=== PATIENT | female | born 1985 | race Caucasian/White ===

== ENCOUNTER 2021-03-22 19:48 | Emergency (ER) | payer MEDICAID ==
[2021-03-22 19:56] VITALS: BP 142/100
[2021-03-22] MEDS ORDERED: HYDROcod/ACETAM 5/325 MG TABLET PO STA (20:32)
--- NOTE | 2021-03-22 20:51 | ED Physician Documentation ---
PD HPI LOWER EXT INJURY - Stated complaint Stated Complaint: R KNEE/FOOT PX - Chief complaint Chief Complaint: Trauma Ext - History obtained from History obtained from: Patient - History of Present Illness PD HPI LOW EXT INJURY LOCATION: Right, Foot Pain level max: 7 Pain level now: 6 Improved by: Rest, Ice, Immobilization Worsened by: Moving, Palpating Associated symptoms: Swelling, Discolored (bruising). No: Weakness, Numbness, Tingling - Additional information Additional information: Patient is a 35-year-old female who presents to the emergency department complaining of right knee and right foot pain. She states that she was playing softball today when she was struck in the knee By a line drive. She states that she was "walking it off". When she tripped and injured her right foot. This occurred about 5 hours prior to arrival. Worse with walking, better with rest. Review of Systems Constitutional: denies: Fever, Chills Respiratory: denies: Cough GI: denies: Abdominal Pain, Vomiting : denies: Now EGA Neurologic: denies: Head injury PD PAST MEDICAL HISTORY - Past Medical History Past Medical History: No - Past Surgical History Past Surgical History: No - Present Medications Home Medications: Ambulatory Orders Medication Instructions Recorded Confirmed HYDROcod/ACETAM 5/325 [[place] 5/325] 1 - 2 ea PO Q6H PRN #14 tablet 03/22/21 Levothyroxine Sodium 50 mcg PO BID 03/22/21 03/22/21 Omeprazole 40 mg PO DAILY 03/22/21 03/22/21 - Allergies Allergies/Adverse Reactions: Allergies Allergy/AdvReac Type Severity Reaction Status Date / Time sulfacetamide Allergy Anaphylaxis Verified 03/22/21 19:56 - Living Situation Living Situation: reports: With family Living Arrangement: reports: At home - Social History Does the pt have substance abuse?: No PD ED PE NORMAL - Vitals Vital signs reviewed: Yes - General General: Alert and oriented X 3, No acute distress - HEENT HEENT: Moist mucous membranes - Derm Derm: Warm and dry - Neuro Neuro: Alert and oriented X 3 - Psych Psych: Normal mood, Normal affect - Free text exam Free text exam: R LE - Mild ecchymosis and tenderness over the patella of the right knee. ACL, MCL, PCL, LCL are intact. No joint effusion. No tenderness along the joint line. The right ankle reveals a normal examination. The right foot has slight ecchymosis to the lateral aspect of the foot along with tenderness over the base of the fifth metatarsal. Otherwise normal examination of the right foot. Neurovascular intact. Results - Vitals Vitals: Vital Signs - 24 hr 03/22/21 19:53 Temperature 36.3 C L Heart Rate 82 Respiratory 16 Rate Blood Pressure 142/100 H O2 Saturation 100 Oxygen O2 Source Room air - Rads (name of study) R foot xray Radiology: Final report received, EMP read contemporaneously, See rad report (No acute bony abnormality) R knee xray Radiology: Final report received, EMP read contemporaneously, See rad report (No acute bony abnormality) PD MEDICAL DECISION MAKING - ED course Complexity details: reviewed results, re-evaluated patient, considered differential, d/w patient ED course: 35-year-old female presents the emergency department with a right knee contusion and a right foot contusion. No acute findings on x-rays. No ligamentous injury. Pain well controlled. Placed in a postoperative shoe and given crutches. We will continue pain medication and ice for home. We will have her rest and elevate the area. We will have her follow-up with her doctor for further care. I am prescribing a short course of short-acting opioid pain medication for this patient. 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 I have discussed that the opioids are for short term therapy only, and will not be refilled from the ED. patient counseled regarding signs and symptoms for which I believe and urgent re-evaluation would be necessary. Patient with good understanding of and agreement to plan and is comfortable going home at this time This document was made in part using voice recognition software. While efforts are made to proofread this document, sound alike and grammatical errors may occur. Departure - Departure Disposition: 01 Home, Self Care Clinical Impression: Contusion of foot Qualifiers: Encounter type: initial encounter Laterality: right Qualified Code(s): S90.31XA - Contusion of right foot, initial encounter Knee contusion Qualifiers: Encounter type: initial encounter Laterality: right Qualified Code(s): S80.01XA - Contusion of right knee, initial encounter Condition: Good Instructions: ED Contusion Lower Ext Follow-Up: your,doctor in 1 week [Other] Prescriptions: HYDROcod/ACETAM 5/325 [[place] 5/325] 1 - 2 ea PO Q6H PRN #14 tablet PRN Reason: Pain Comments: Your x-rays do not show any acute abnormalities today. You may bear weight as tolerated. Please follow-up with your doctor in 1 week for repeat evaluation. Your prescription was sent to [facility] in [place]. I am prescribing a short course of narcotic pain medication for you. These are potentially dangerous and addictive medications that should be used carefully. These medications may constipate you. Take an penz-mwu-diwjqzo stool softener (docusate) twice daily with plenty of water while taking these medications. If you go 24 hours without a bowel movement, take mfxa-plf-wwzolyg miralax, per package instructions. Do not drink or drive while taking these medications. If you received narcotic or sedating medications while in the emergency department, do not drive for 24 hours. Store this medication in a safe, secure place and out of reach of children. It is a violation of federal law to give or sell this medication to another person or to use in a manner other than prescribed. The ED will not refill narcotic prescriptions, including prescriptions lost or stolen. To dispose of unwanted medications: 1. [facility] at [address] in [place] has a medication drop box. They accept prescription medications (in pill form) Tuesday through Tuesday 9:00 a.m. to 5:00 p.m. 2. The [facility] Police Department accepts prescription medications (in pill form only) for disposal year round. Call for more information. 3. Contact the [facility] for the next [facility] sponsored prescription drug collection event. , [phone], or [phone];
--- NOTE | 2021-03-22 21:12 | XRAY Report ---
PROCEDURE: Foot 3 View RT INDICATIONS: Fall, pain TECHNIQUE: 3 views of the foot were acquired. COMPARISON: None FINDINGS: Bones: No fractures or dislocations. No suspicious bony lesions. Soft tissues: No tibiotalar joint effusion. Achilles tendon appears normal. IMPRESSION: Normal exam. Reviewed by: Patricio Headley MD on 03/22/2021 9:10 PM [facility] Approved by: Patricio Headley MD on 03/22/2021 9:10 PM [facility] Station ID: [id number]
--- NOTE | 2021-03-22 21:13 | XRAY Report ---
PROCEDURE: Knee 4 View RT INDICATIONS: fall, pain TECHNIQUE: 4 views of the right knee. COMPARISON: None. FINDINGS: Bones: No fractures or dislocations. No suspicious bony lesions. Soft tissues: Small suprapatellar knee joint effusion without lipohemarthrosis. No suspicious soft ti ssue calcifications. IMPRESSION: No fracture. Small suprapatellar knee effusion. Reviewed by: Patricio Headley MD on 03/22/2021 9:11 PM PST Approved by: Patricio Headley MD on 03/22/2021 9:11 PM PST Station ID: [id number]
== END 2021-03-22 21:30 | disposition home or self-care (01) ==
LOC: ED 19:48
DX: S80.01XA Contusion of right knee, initial encounter (principal); S90.31XA Contusion of right foot, initial encounter; W21.07XA Struck by softball, initial encounter; W18.40XA Slipping, tripping and stumbling without falling, unspecified, initial encounter; Y93.64 Activity, baseball
CPT/HCPCS: 73564; 73630; 99283; A9270

== ENCOUNTER 2021-03-31 08:00 | Outpatient (CLI) | payer MEDICAID | END 2021-03-31 23:59 | LOC: LAB 08:00 | PROVIDERS: ATTEND Emergency Medicine | DX: Z53.9 Procedure and treatment not carried out, unspecified reason (principal) | CPT/HCPCS: 36415; 86317; 86480; 86735; 86762; 86765; 86787 ==

== ENCOUNTER 2021-05-17 14:58 | Emergency (ER) | payer BC, MEDICAID ==
[2021-05-17 15:08] VITALS: BP 132/75
--- NOTE | 2021-05-17 15:10 | ED Physician Documentation ---
History of Present Illness - Stated complaint Stated Complaint: RIGHT KNEE INJURY - Chief complaint Chief Complaint: Ext Problem - Additonal information Additional information: 35-year-old female presents emergency department for evaluation of acute right knee pain. She reports that she was in a changing room at the [facility] when she slipped falling down directly onto her knee. She presents with a large bruise and contusion to the knee and states she has difficulty bearing weight. Initially she reports that most of the pain is in the posterior knee however. Pain with flexion. No history of previous injury. She took 600 Motrin prior to arrival. Review of Systems Constitutional: denies: Fever, Chills Nose: reports: Reviewed and negative Throat: reports: Reviewed and negative Cardiac: reports: Reviewed and negative Respiratory: reports: Reviewed and negative GI: reports: Reviewed and negative : reports: Reviewed and negative Skin: reports: Abrasion (s) Musculoskeletal: reports: Joint pain PD PAST MEDICAL HISTORY - Past Medical History Endocrine/Autoimmune: HyPOthyroidism GI: GERD - Past Surgical History Past Surgical History: No General: Cholecystectomy, Appendectomy HEENT: Tonsil/Adenoidectomy - Present Medications Home Medications: Ambulatory Orders Medication Instructions Recorded Confirmed HYDROcod/ACETAM 5/325 [[place] 5/325] 1 - 2 ea PO Q6H PRN #14 tablet 03/22/21 Levothyroxine Sodium 50 mcg PO BID 03/22/21 03/22/21 Omeprazole 40 mg PO DAILY 03/22/21 03/22/21 HYDROcod/ACETAM 5/325 [[place] 5/325] 1 - 2 tablet PO BID #10 tablet 05/17/21 - Allergies Allergies/Adverse Reactions: Allergies Allergy/AdvReac Type Severity Reaction Status Date / Time prochlorperazine Allergy Anxiety Verified 05/17/21 15:08 [From Compazine] sulfacetamide Allergy Anaphylaxis Verified 05/17/21 15:04 - Social History Does the pt smoke?: Yes Smoking Status: Current every day smoker Does the pt drink ETOH?: No Does the pt have substance abuse?: No - Immunizations Immunizations are current?: Yes PD ED PE EXPANDED - General General: Alert, In Pain - Extremities Extremities: Right knee (Large contusion and bruising just below the patella. No laxity. Able to flex and extend the knee though painful. Mild swelling. 2+ distal DP pulse) Results - Vitals Vitals: Vital Signs - 24 hr 05/17/21 15:04 Temperature 37.2 C Heart Rate 104 H Respiratory 18 Rate Blood Pressure 132/75 H O2 Saturation 99 Oxygen O2 Source Room air PD MEDICAL DECISION MAKING - ED course Complexity details: reviewed results, re-evaluated patient, d/w patient ED course: 35-year-old female presents emergency department for evaluation of acute right knee pain. Reports she slipped on a wet floor falling directly on the knee. She denies that she twisted it. She has a large contusion and bruising directly over the patella. Difficulty bending the knee. X-rays without acute focal findings. Patient will be given an articulating knee brace and crutches. Recommend ice, Tylenol and ibuprofen. Limited amount of hydrocodone is sent for more severe pain. Emergent return precautions were discussed as well as routine conservative care I am prescribing a short course of short-acting opioid pain medication for this patient. 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 I have discussed that the opioids are for short term therapy only, and will not be refilled from the ED. Departure - Departure Disposition: 01 Home, Self Care Clinical Impression: Contusion of right knee Qualifiers: Encounter type: initial encounter Qualified Code(s): S80.01XA - Contusion of right knee, initial encounter Condition: Stable Record reviewed to determine appropriate education?: Yes Instructions: Contusion Bone About Prescriptions: HYDROcod/ACETAM 5/325 [[place] 5/325] 1 - 2 tablet PO BID #10 tablet Comments: Rossana you are seen today in the emergency department for pain in your right knee after falling directly onto it. The x-ray does not show any acute fractures or dislocations. You may have a very mild early arthritis. I suspect the simply have a contusion or bruising in the knee. I do recommend that you ice the knee and take ibuprofen and Tylenol. For more severe pain I have sent a prescription for a limited amount of hydrocodone to the [facility] in [place]. If your symptoms are not improved in 1 to 2 weeks you may need a referral to orthopedics or physical therapy. These referrals need to be made through your primary care provider. Return to the ER if you develop any fevers or have any concerns of infection. I am prescribing a short course of narcotic pain medication for you. These are potentially dangerous and addictive medications that should be used carefully. These medications may constipate you. Take an ivgx-hfp-rwlqnwm stool softener (docusate) twice daily with plenty of water while taking these medications. If you go 24 hours without a bowel movement, take jceg-eac-maksgmm miralax, per package instructions. Do not drink or drive while taking these medications. If you received narcotic or sedating medications while in the emergency department, do not drive for 24 hours. Store this medication in a safe, secure place and out of reach of children. It is a violation of federal law to give or sell this medication to another person or to use in a manner other than prescribed. The ED will not refill narcotic prescriptions, including prescriptions lost or stolen. To dispose of unwanted medications: 1. [facility] at [address] in [place] has a medication drop box. They accept prescription medications (in pill form) Tuesday through Tuesday 9:00 a.m. to 5:00 p.m. 2. The [facility] Police Department accepts prescription medications (in pill form only) for disposal year round. Call for more information. 3. Contact the [facility] for the next [facility] sponsored prescription drug collection event. , [phone], or [phone]; Note that many narcotic pain relievers also contain Tylenol/acetaminophen. Please ensure that your total dose of acetaminophen from all sources does not exceed 3 g (3000 mg) per day.
--- NOTE | 2021-05-17 15:42 | XRAY Report ---
PROCEDURE: Knee 3 View RT INDICATIONS: pain after fall TECHNIQUE: 3 views of the right knee(s) were acquired. COMPARISON: Correlation is made with prior knee plain films, 03/22/2021 FINDINGS: Bones: No fractures or dislocations. No suspicious bony lesions. These degenerative spaces are well preserved. Along the superior aspect of the patella, an enthesophy te can be seen. Soft tissues: There is a mild joint effusion. No suspicious soft tissue calcifications. IMPRESSION: Small joint effusion. No acute bony abnormality can be seen. If it would be helpful for clinical management decision making, please consider a dedicated, schedule d knee MRI for further evaluation (assuming that there is no contraindication). Reviewed by: Dante Mei MD on 05/17/2021 2:41 PM [facility] Approved by: Dante Mei MD on 05/17/2021 2:41 PM [facility] Station ID: [id number]
== END 2021-05-17 16:09 | disposition home or self-care (01) ==
LOC: ED 14:58
DX: S80.01XA Contusion of right knee, initial encounter (principal); W01.0XXA Fall on same level from slipping, tripping and stumbling without subsequent striking against object, initial encounter; Y92.838 Other recreation area as the place of occurrence of the external cause; F17.200 Nicotine dependence, unspecified, uncomplicated
CPT/HCPCS: 99282; 99283

== ENCOUNTER 2021-05-18 18:31 | Emergency (ER) | payer BC, MEDICAID ==
--- NOTE | 2021-05-18 20:01 | ED Physician Documentation ---
History of Present Illness - Stated complaint Stated Complaint: RIGHT KNEE PX - Chief complaint Chief Complaint: Trauma Ext - Additonal information Additional information: 35-year-old female returns to the emergency department for evaluation of acute right knee pain. Seen by myself for similar yesterday. X-ray was negative for fracture but there is an effusion likely secondary to internal knee derangement. She was placed in crutches and a knee immobilizer but despite hydrocodone is not better. She does present with 6 tablets left. She is scheduled to see [facility] on Tuesday to establish care. 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 : None HEENT: None Psych: Depression Musculoskeletal: None Derm: None - Past Surgical History Past Surgical History: No General: Cholecystectomy, Appendectomy HEENT: Tonsil/Adenoidectomy - Present Medications Home Medications: Ambulatory Orders Medication Instructions Recorded Confirmed Levothyroxine Sodium 50 mcg PO DAILY 03/22/21 05/18/21 Omeprazole 40 mg PO DAILY 03/22/21 05/18/21 HYDROcod/ACETAM 5/325 [[place] 5/325] 1 - 2 tablet PO BID #10 tablet 05/17/21 05/18/21 Sertraline [Zoloft] 100 mg PO HS 05/18/21 05/18/21 oxyCODONE [Roxicodone] 5 mg PO BID PRN #10 tablet 05/18/21 - Allergies Allergies/Adverse Reactions: Allergies Allergy/AdvReac Type Severity Reaction Status Date / Time prochlorperazine Allergy Anxiety Verified 05/18/21 18:45 [From Compazine] sulfacetamide Allergy Anaphylaxis Verified 05/18/21 18:45 - Social History Does the pt smoke?: Yes Smoking Status: Current every day smoker Does the pt drink ETOH?: No Does the pt have substance abuse?: No - Immunizations Immunizations are current?: Yes PD ED PE EXPANDED - Extremities Extremities: Right knee (Pain with flexion of the knee. Tenderness posteriorly. There is mild laxity along the medial joint line. Patient did not tolerate knee exam well.) Results - Vitals Vitals: Vital Signs - 24 hr 05/18/21 18:42 Temperature 36.1 C L Heart Rate 101 H Respiratory 18 Rate Blood Pressure 130/78 O2 Saturation 98 Oxygen O2 Source Room air PD MEDICAL DECISION MAKING - ED course Complexity details: reviewed results, d/w patient ED course: 35 year-old female returns emergency department with worsening right knee pain. Seen yesterday for similar x-ray was negative. Despite Motrin Tylenol and hydrocodone at home she reports the pain is not improving and severe and is requesting an alternative pain medication. She has agreed to relinquish the hydrocodone here to the nurses in the emergency department and I will send a prescription for oxycodone to the pharmacy. She is scheduled to see [facility] on Tuesday. Given the persistence of pain she likely will require an MRI. She is to remain in the knee immobilizer and continue to use crutches. I am prescribing a short course of short-acting opioid pain medication for this patient. 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 I have discussed that the opioids are for short term therapy only, and will not be refilled from the ED. Departure - Departure Disposition: Home, Self Care Clinical Impression: Posterior right knee pain Condition: Stable Record reviewed to determine appropriate education?: Yes Prescriptions: oxyCODONE [Roxicodone] 5 mg PO BID PRN #10 tablet PRN Reason: Pain Comments: Rossana I am sorry that you have had such poor pain control at home. I am glad that you are scheduled to see him doctor on Tuesday. Please continue to use the crutches when ambulating at all times. Wear the knee immobilizer when out of bed. Attempt to elevate your leg at night this will help reduce pain and swelling. I have sent a prescription for oxycodone to the pharmacy. In the long-term you may require an MRI of the knee to further evaluate for ligamentous or meniscal damage. Continue to ice the knee take the ibuprofen and Tylenol as you have be en I am prescribing a short course of narcotic pain medication for you. These are potentially dangerous and addictive medications that should be used carefully. These medications may constipate you. Take an audo-swl-dybdxeu stool softener (docusate) twice daily with plenty of water while taking these medications. If you go 24 hours without a bowel movement, take wqjc-klg-uqqpjbs miralax, per package instructions. Do not drink or drive while taking these medications. If you received narcotic or sedating medications while in the emergency department, do not drive for 24 hours. Store this medication in a safe, secure place and out of reach of children. It is a violation of federal law to give or sell this medication to another person or to use in a manner other than prescribed. The ED will not refill narcotic prescriptions, including prescriptions lost or stolen. To dispose of unwanted medications: 1. [facility] [address] in [place] has a medication drop box. They accept prescription medications (in pill form) Tuesday through Tuesday 9:00 a.m. to 5:00 p.m. 2. The [facility] Police Department accepts prescription medications (in pill form only) for disposal year round. Call for more information. 3. Contact the [facility] for the next [facility] sponsored prescription drug collection event. , [phone], or [phone]; Note that many narcotic pain relievers also contain Tylenol/acetaminophen. Please ensure that your total dose of acetaminophen from all sources does not exceed 3 g (3000 mg) per day.
[2021-05-18 20:11] VITALS: BP 129/72
== END 2021-05-18 20:10 | disposition home or self-care (01) ==
LOC: ED 18:31
DX: M25.461 Effusion, right knee (principal); F17.200 Nicotine dependence, unspecified, uncomplicated
CPT/HCPCS: 99281; 99282

== ENCOUNTER 2021-07-01 08:00 | Outpatient (CLI) | payer BC, MEDICAID | END 2021-07-02 12:44 | disposition home or self-care (01) | LOC: LAB.N 08:00 | PROVIDERS: ATTEND Physician Assistant Medical | DX: B34.9 Viral infection, unspecified (principal); Z20.822 Contact with and (suspected) exposure to COVID-19 ==

== ENCOUNTER 2021-07-08 20:51 | Emergency (ER) | payer BC, MEDICAID ==
[2021-07-08 21:04] VITALS: BP 137/76
[2021-07-08] MEDS ORDERED: ONDANSETRON ODT 4 MG TABLET TL STA (21:21)
[2021-07-08] MEDS ORDERED: AMOX/CLAV 875 MG/125 MG TABLET PO STA (21:21)
--- NOTE | 2021-07-08 21:37 | ED Physician Documentation ---
History of Present Illness - Stated complaint Stated Complaint: SOA/FLU SYMPTOMS - Chief complaint Chief Complaint: Resp - History obtained from History obtained from: Patient - Additonal information Additional information: Patient is a 35-year-old female with no significant past medical history presenting for evaluation of 2 weeks of nasal congestion, sinus pressure, sore throat and cough. She reports having yellow to green drainage from the nose. She was seen at the walk-in clinic on Tuesday and had a negative COVID test as well as negative strep test. She was given a dose of oral steroid and given Tessalon Perles and reports no improvement in her symptoms. Due to the coughing she reports having nausea but no emesis.No abdominal painOr dysuria. Review of Systems Constitutional: denies: Fever Ears: denies: Ear pain Nose: reports: Congestion, Sinus pressure / pain Throat: reports: Sore throat Cardiac: denies: Chest pain / pressure Respiratory: reports: Cough. denies: Dyspnea GI: reports: Nausea. 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 : None HEENT: None Psych: Depression Musculoskeletal: None Derm: None - Past Surgical History Past Surgical History: Yes General: Cholecystectomy, Appendectomy HEENT: Tonsil/Adenoidectomy - Present Medications Home Medications: Ambulatory Orders Medication Instructions Recorded Confirmed Levothyroxine Sodium 50 mcg PO DAILY 03/22/21 05/18/21 Omeprazole 40 mg PO DAILY 03/22/21 05/18/21 HYDROcod/ACETAM 5/325 [Fouke 5/325] 1 - 2 tablet PO BID #10 tablet 05/17/21 05/18/21 Sertraline [Zoloft] 100 mg PO HS 05/18/21 05/18/21 oxyCODONE [Roxicodone] 5 mg PO BID PRN #10 tablet 05/18/21 Amox/Clav 875/125 [Augmentin] 1 each PO Q12H #14 tablet 07/08/21 Ondansetron Odt [Zofran] 4 mg TL Q6H PRN #10 tablet 07/08/21 - Allergies Allergies/Adverse Reactions: Allergies Allergy/AdvReac Type Severity Reaction Status Date / Time prochlorperazine Allergy Anxiety Verified 07/08/21 21:03 [From Compazine] sulfacetamide Allergy Anaphylaxis Verified 07/08/21 21:03 - Social History Does the pt smoke?: Yes Smoking Status: Current every day smoker Does the pt drink ETOH?: No Does the pt have substance abuse?: No - Immunizations Immunizations are current?: Yes - POLST Patient has POLST: No PD ED PE NORMAL - General General: Alert and oriented X 3, No acute distress, Well developed/nourished - HEENT HEENT: Atraumatic, Moist mucous membranes, Pharynx benign, Other (Bilateral maxillary sinus tenderness with no visible swelling or erythema) - Neck Neck: Supple, no meningeal sign - Cardiac Cardiac: RRR, No murmur, Strong equal pulses - Respiratory Respiratory: No respiratory distress, Clear bilaterally - Abdomen Abdomen: Normal bowel sounds, Soft, Non tender - Derm Derm: Warm and dry - Extremities Extremities: No edema - Neuro Neuro: Alert and oriented X 3, No motor deficit, Normal speech - Psych Psych: Normal mood Results - Vitals Vitals: Vital Signs - 24 hr 07/08/21 07/08/21 07/08/21 20:58 21:12 21:29 Temperature 36.5 C Heart Rate 97 Respiratory 14 16 17 Rate Blood Pressure 137/76 H O2 Saturation 100 07/08/21 21:49 Temperature Heart Rate Respiratory 16 Rate Blood Pressure O2 Saturation Oxygen O2 Source Room air PD MEDICAL DECISION MAKING - ED course ED course: Is a 35-year-old female presenting for evaluation of sinus pressure for 2 weeks along with cough and sore throat. Recent negative COVID test and negative strep test. Patient does have tenderness over bilateral maxillary sinuses. Her symptoms have been present for least 2 weeks. As such, I do think it is appropriate to initiate course of antibiotics as she is failed conservative treatment.Patient's exam is otherwise reassuring with no signs of respiratory distress. No abdominal tenderness on exam.Patient was counseled on treatment plan and aware of strict return precautions. Departure - Departure Disposition: 01 Home, Self Care Clinical Impression: Sinusitis Qualifiers: Sinusitis location: maxillary Chronicity: acute Recurrence: non-recurrent Qualified Code(s): J01.00 - Acute maxillary sinusitis, unspecified Condition: Stable Instructions: ED Sinusitis Abx Tx Prescriptions: Amox/Clav 875/125 [Augmentin] 1 each PO Q12H #14 tablet Ondansetron Odt [Zofran] 4 mg TL Q6H PRN #10 tablet PRN Reason: Nausea / Vomiting Comments: Rossana - You were evaluated for a cough, sore throat and congestion in your sinuses. I believe this is related to a sinus infection. Because your symptoms have been ongoing for at least 2 weeks I do think it is appropriate to start you on antibiotics as other treatments have not improved your symptoms. I have sent a prescription for Augmentin to the [facility] pharmacy in [place]. I have also sent a prescription for nausea medication. Please take these medications as prescribed. For your cough you can use the Tessalon Perles you were prescribed or use honey. I would also use saline sprays in your nose to help loosen any mucus which may help reduce your cough as well as the amount of congestion you are feeling.At any time it seems that any symptoms are worsening such as difficulty breathing, trouble swallowing, chest pain please return to the emergency department for evaluation. Forms: Activity restrictions Discharge Date/Time: 07/08/21 21:50
== END 2021-07-08 21:50 | disposition home or self-care (01) ==
LOC: ED 20:51
DX: J01.00 Acute maxillary sinusitis, unspecified (principal); F17.200 Nicotine dependence, unspecified, uncomplicated
CPT/HCPCS: 99282; A9270; Q0162

== ENCOUNTER 2021-08-04 08:00 | Outpatient (CLI) | payer MEDICAID ==
[2021-08-05 19:05] LABS: BASOPHILS # (AUTO) 0.1 10^3/uL (0.0-0.1); BASOPHILS % (AUTO) 1.1 %; EOSINOPHILS # (AUTO) 0.4 10^3/uL (0.0-0.7); EOSINOPHILS % (AUTO) 5.7 %; HCT - HEMATOCRIT 33.4 % (37.0-47.0); HGB - HEMOGLOBIN 9.8 g/dL (12.0-16.0); LYMPHOCYTES # (AUTO) 1.8 10^3/uL (1.5-3.5); LYMPHOCYTES % (AUTO) 28.7 %; MEAN CORPUSCULAR HEMOGLOBIN 23.4 pg (27.0-31.0); MEAN CORPUSCULAR HGB CONC 29.3 g/dL (32.0-36.0); MEAN CORPUSCULAR VOLUME 79.9 fL (81.0-99.0); MEAN PLATELET VOLUME 10.5 fL (7.9-10.8); MONOCYTES # (AUTO) 0.4 10^3/uL (0.0-1.0); MONOCYTES % (AUTO) 6.5 %; NEUTROPHILS # (AUTO) 3.6 10^3/uL (1.5-6.6); NEUTROPHILS % (AUTO) 57.5 %; PLT - PLATELET COUNT 271 10^3/uL (130-450); RED BLOOD COUNT 4.18 10^6/uL (4.20-5.40); RED CELL DISTRIBUTION WIDTH 19.7 % (12.0-15.0); WHITE BLOOD COUNT 6.3 x10^3/uL (4.8-10.8)
[2021-08-05 21:46] LABS: ALBUMIN 4.1 g/dL (3.2-5.5); ALBUMIN/GLOBULIN RATIO 1.2 (1.0-2.2); BILIRUBIN,TOTAL 0.6 mg/dL (0.2-1.0); CALCIUM 9.5 mg/dL (8.5-10.3); CREATININE 0.6 mg/dL (0.4-1.0); POTASSIUM 4.3 mmol/L (3.5-5.0); TOTAL PROTEIN 7.4 g/dL (6.7-8.2)
== END 2021-08-04 23:59 | disposition home or self-care (01) ==
LOC: LAB.N 08:00
PROVIDERS: ATTEND Family Medicine
DX: K21.9 Gastro-esophageal reflux disease without esophagitis (principal); D50.9 Iron deficiency anemia, unspecified; R51.9 Headache, unspecified
CPT/HCPCS: 36415; 80053; 83540; 84466; 85025

== ENCOUNTER 2021-09-03 18:32 | Emergency (ER) | payer MEDICAID ==
[2021-09-03] MEDS ORDERED: oxyCODONE 5 MG TABLET PO STA (18:54)
--- NOTE | 2021-09-03 18:56 | ED Physician Documentation ---
PD HPI LOWER EXT INJURY - Stated complaint Stated Complaint: R FOOT AND R ARM PX - History obtained from History obtained from: Patient - Additional information Additional information: [place] injuring her right arm hand and ankle. No head injury or loss consciousness. No possibility of . Pain is severe. Comorbidities include GERD, hypothyroidism. Initially when I asked her what medications she is on she listed them without including Suboxone. I noted that she has prescriptions for Suboxone and she states that although they were being filled, there she is not picking them up. No possibility of . 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 : None HEENT: None Psych: Depression Musculoskeletal: None Derm: None - Past Surgical History Past Surgical History: Yes General: Cholecystectomy, Appendectomy HEENT: Tonsil/Adenoidectomy - Present Medications Home Medications: Ambulatory Orders Medication Instructions Recorded Confirmed Levothyroxine Sodium 50 mcg PO DAILY 03/22/21 05/18/21 Omeprazole 40 mg PO DAILY 03/22/21 05/18/21 HYDROcod/ACETAM 5/325 [Kobuk 5/325] 1 - 2 tablet PO BID #10 tablet 05/17/21 05/18/21 Sertraline [Zoloft] 100 mg PO HS 05/18/21 05/18/21 oxyCODONE [Roxicodone] 5 mg PO BID PRN #10 tablet 05/18/21 Amox/Clav 875/125 [Augmentin] 1 each PO Q12H #14 tablet 07/08/21 Ondansetron Odt [Zofran] 4 mg TL Q6H PRN #10 tablet 07/08/21 Oxycodone HCl/Acetaminophen 1 - 2 each PO Q6H PRN #14 tablet 09/03/21 [Percocet 5-325 mg Tablet] - Allergies Allergies/Adverse Reactions: Allergies Allergy/AdvReac Type Severity Reaction Status Date / Time prochlorperazine Allergy Anxiety Verified 09/03/21 18:56 [From Compazine] sulfacetamide Allergy Anaphylaxis Verified 09/03/21 18:56 - Social History Does the pt smoke?: Yes Smoking Status: Current every day smoker Does the pt drink ETOH?: No Does the pt have substance abuse?: No - Immunizations Immunizations are current?: Yes - POLST Patient has POLST: No PD ED PE NORMAL - Vitals Vital signs reviewed: Yes - General General: Alert and oriented X 3, No acute distress - HEENT HEENT: PERRL, EOMI - Neck Neck: Supple, no meningeal sign, No bony TTP - Back Back: No CVA TTP, No spinal TTP - Derm Derm: Normal color, Warm and dry - Extremities Extremities: Other (see mdm text box too small) Results - Vitals Vitals: Vital Signs - 24 hr 09/03/21 18:56 Temperature 37.2 C Heart Rate 90 Respiratory 16 Rate Blood Pressure 115/83 H O2 Saturation 99 Oxygen O2 Source Room air PD MEDICAL DECISION MAKING - ED course ED course: She is resistant to musculoskeletal examination of the upper extremities, pushing away my hand with even light palpation. Therefore it is difficult to tell where she is tender. She is able to range the right elbow without pain but seems tender over the medial epicondyle and distal wrist and proximal right thumb. She is unable to flex the wrist but extends it okay. Also the proximal fifth metatarsal on the right without ankle tenderness. 35-year-old woman presents after a fall with complaints of pain to the right upper extremity from the elbow to the hand and to the right ankle. Initial evaluation she Did not list Suboxone is being on one of her medications. Her CRUZITO E form suggest she is getting frequent prescriptions for Suboxone. I asked her about this and she stated that while [facility] pharmacy is filling them, she is not picking them up. X-rays were ordered and I called the pharmacist at [facility] pharmacy who confirmed that she is filling and picking up all of her prescriptions including the most recent one on 27 August. This is concerning since it is in direct contradiction to what the patient told me. We had a long talk about this and she admits to lying to me, she says that she was scared about being judged and this is also based on prior visits here. I discussed with her that I was happy to give her short-term pain management but also that she needed to be honest with further medical care and she is understanding. X-rays of the right elbow, right foot, right forearm, and right hand were interpreted contemporaneously by me and all negative for fracture. Note made of soft tissue calcifications on the foot. Physically this corresponds to sand on the surface of her her medial right foot. Departure - Departure Disposition: 01 Home, Self Care Clinical Impression: Elbow injury Qualifiers: Encounter type: initial encounter Laterality: right Qualified Code(s): S59.901A - Unspecified injury of right elbow, initial encounter Injury of hand Qualifiers: Encounter type: initial encounter Laterality: right Qualified Code(s): S69.91XA - Unspecified injury of right wrist, hand and finger(s), initial encounter Injury of wrist Qualifiers: Encounter type: initial encounter Laterality: right Qualified Code(s): S69.91XA - Unspecified injury of right wrist, hand and finger(s), initial encounter Ankle injury Qualifiers: Encounter type: initial encounter Laterality: right Qualified Code(s): S99.911A - Unspecified injury of right ankle, initial encounter Condition: Good Record reviewed to determine appropriate education?: Yes Instructions: ED Sprain Ankle W X Ray, ED Sprain Wrist Prescriptions: Oxycodone HCl/Acetaminophen [Percocet 5-325 mg Tablet] 1 - 2 each PO Q6H PRN #14 tablet PRN Reason: pain Comments: I sent your prescriptions to [facility] in [place]. Return for new or worsening symptoms. Okay to walk and bear weight, you can take ibuprofen in addition to the prescription for pain, ice and elevation are also good. If not improved in a week, talk with your doctor about reexamination. I am prescribing a short course of narcotic pain medication for you. These are potentially dangerous and addictive medications that should be used carefully. These medications may constipate you. Take an wzim-nlu-hoaduad stool softener (docusate) twice daily with plenty of water while taking these medications. If you go 24 hours without a bowel movement, take [id number] miralax, per package instructions. Do not drink or drive while taking these medications. If you received narcotic or sedating medications while in the emergency department, do not drive for 24 hours. Store this medication in a safe, secure place and out of reach of children. It is a violation of federal law to give or sell this medication to another person or to use in a manner other than prescribed. The ED will not refill narcotic prescriptions, including prescriptions lost or stolen. To dispose of unwanted medications: 1. [facility] at [address] in [place] has a medication drop box. They accept prescription medications (in pill form) Tuesday through Tuesday 9:00 a.m. to 5:00 p.m. 2. [facility] accepts prescription medications (in pill form only) for disposal year round. Call for more information. 3. Contact the [facility] for the next [facility] sponsored prescription drug collection event. , [phone], or [phone]; Note that many narcotic pain relievers also contain Tylenol/acetaminophen. Please ensure that your total dose of acetaminophen from all sources does not exceed 3 g (3000 mg) per day.
--- NOTE | 2021-09-03 19:31 | XRAY Report ---
PROCEDURE: Foot 3 View RT INDICATIONS: R arm/leg injuries TECHNIQUE: 3 views of the foot were acquired. COMPARISON: None. FINDINGS: Bones: No fractures or dislocations. No suspicious bony lesions. Soft tissues: No tibiotalar joint effusion. Achilles tendon appears normal. Subtle soft tissue calc ifications. IMPRESSION: No acute osseous abnormality. Subtle scattered soft tissue calcifications. Reviewed by: Omar Lechuga MD on 09/03/2021 7:30 PM PDT Approved by: Omar Lechuga MD on 09/03/2021 7:30 PM PDT Station ID: [id number]
--- NOTE | 2021-09-03 19:32 | XRAY Report ---
PROCEDURE: Elbow 3 View RT INDICATIONS: R arm/leg injuries TECHNIQUE: 3 views of the elbow were acquired. COMPARISON: Same day right forearm radiographs. FINDINGS: Bones: No fractures or dislocations. No suspicious bony lesions. Soft tissues: No elbow joint effusion. No suspicious soft tissue calcifications. IMPRESSION: No fracture identified. No joint effusion. Reviewed by: Omar Lechuga MD on 09/03/2021 7:31 PM PDT Approved by: Omar Lechuga MD on 09/03/2021 7:31 PM PDT Station ID: [id number]
--- NOTE | 2021-09-03 19:33 | XRAY Report ---
PROCEDURE: Forearm RT INDICATIONS: R arm/leg injuries TECHNIQUE: 2 views of the forearm were acquired. COMPARISON: Same day right elbow radiographs. FINDINGS: Bones: No fractures or dislocations. No suspicious bony lesions. Soft tissues: No suspicious soft tissue calcifications or masses. IMPRESSION: No acute osseous abnormality. Reviewed by: Omar Lechuga MD on 09/03/2021 7:31 PM PDT Approved by: Omar Lechuga MD on 09/03/2021 7:31 PM PDT Station ID: [id number]
--- NOTE | 2021-09-03 19:33 | XRAY Report ---
PROCEDURE: Hand 3 View RT INDICATIONS: R arm/leg injuries TECHNIQUE: 3 views of the hand(s) acquired. COMPARISON: Same day right forearm radiographs. FINDINGS: Bones: No fractures or dislocations. No suspicious bony lesions. Soft tissues: No suspicious soft tissue calcifications. IMPRESSION: No acute osseous abnormality. Reviewed by: Omar Lechuga MD on 09/03/2021 7:32 PM PDT Approved by: Omar Lechuga MD on 09/03/2021 7:32 PM PDT Station ID: [id number]
[2021-09-03 20:02] VITALS: BP 114/80
== END 2021-09-03 20:23 | disposition home or self-care (01) ==
LOC: ED 18:32
DX: S59.901A Unspecified injury of right elbow, initial encounter (principal); S69.91XA Unspecified injury of right wrist, hand and finger(s), initial encounter; S99.911A Unspecified injury of right ankle, initial encounter; W19.XXXA Unspecified fall, initial encounter; Y92.832 Beach as the place of occurrence of the external cause; F17.200 Nicotine dependence, unspecified, uncomplicated
CPT/HCPCS: 73080; 73090; 73130; 73630; 99282; 99284; A9270